=== PATIENT | female | born 1970 | race Caucasian/White ===

== ENCOUNTER 2019-10-15 11:38 | Emergency (ER) | payer OTHER ==
[~2019-10-15] VITALS: Ht 165.1 cm; Wt 78.0 kg
[2019-10-15] MEDS ORDERED: LIDOCAINE VISCOUS 2% UD 15 ML UDC ONE (11:59)
[2019-10-15] MEDS ORDERED: MAG HYDROX/AL HYDROX/SIMETH 30 ML UDC ONE (11:59)
[2019-10-15] MEDS ORDERED: IV NS 0.9% 1,000 ML BAG IV ONE (12:00)
[2019-10-15] MEDS ORDERED: ACETAMINOPHEN ES 500 MG TABLET ONE (12:00)
[2019-10-15] MEDS ORDERED: MAG HYDROX/AL HYDROX/SIMETH 30 ML UDC PO ONE (12:00)
[2019-10-15] MEDS ORDERED: LIDOCAINE VISCOUS 2% UD 15 ML UDC MM ONE (12:00)
[2019-10-15] MEDS ORDERED: ACETAMINOPHEN ES 500 MG TABLET PO ONE (12:00)
[2019-10-15 12:08] LABS: BASOPHILS % (AUTO) 0.5 % (0.0-2.0); HEMATOCRIT 43 % (33-45); HEMOGLOBIN 14.6 g/dL (11.5-14.8); LYMPHOCYTES # (AUTO) 2.8 /CMM (0.8-4.8); LYMPHOCYTES % (AUTO) 39.4 % (20.0-44.0); MEAN CORPUSCULAR HGB CONC 34 g/dl (31.0-36.0); MEAN CORPUSCULAR VOLUME 92 fL (82-100); MONOCYTES # (AUTO) 0.3 /CMM (0.1-1.30); MONOCYTES % (AUTO) 4.8 % (2.0-12.0); NEUTROPHILS # (AUTO) 3.8 /CMM (1.8-8.9); NEUTROPHILS % (AUTO) 53.3 % (43.0-81.0); PLATELET COUNT (AUTO) 278 /CMM (150-450); RED BLOOD CELL COUNT(AUTO) 4.69 MIL/uL (4.0-5.2); WHITE BLOOD COUNT (AUTO) 7.2 K/uL (4.3-11.0)
[2019-10-15 12:16] LABS: ALBUMIN 4.6 g/dL (3.4-5.0); BILIRUBIN,DIRECT 0.1 mg/dL (0.0-0.2); BILIRUBIN,TOTAL 0.6 mg/dL (0.2-1.0); CALCIUM, SERUM 9.4 mg/dL (8.5-10.1); POTASSIUM 3.2 mmol/L (3.5-5.1)
--- NOTE | 2019-10-15 12:58 | NUR ---
Pt states "feeling a bit better" Updated by MD - For discharge. Patient discharged to home in stable condition. Written and verbal after care instructions given. Patient verbalizes understanding of instruction.
[2019-10-15 12:59] VITALS: BP 122/79
== END 2019-10-15 13:00 | disposition home or self-care (01) ==
LOC: PART 11:46 → ER 13:00
DX: R10.13 Epigastric pain (principal); J32.9 Chronic sinusitis, unspecified; Z90.89 Acquired absence of other organs; Z60.2 Problems related to living alone
CPT/HCPCS: 36415; 71045; 80048; 80076; 83690; 85025; 99284; J7030

== ENCOUNTER 2021-09-22 21:40 | Emergency (ER) | payer OTHER ==
[~2021-09-22] VITALS: Ht 165.1 cm; Wt 77.6 kg
--- NOTE | 2021-09-22 21:52 | NUR ---
PT BIBFAMILY C/O LEFT SIDED CHEST PAIN RADIATING TO LEFT SHOULDER X 3 HOURS. PT AAOX4 BREATHING EVENLY AND UNLABORED. PT ATTACHED TO DIRECTOR OF INVESTIGATIONS AND POX. PT CHANGED INTO GOWN AND GIVEN BLANKET AND CALL LIGHT WITHIN REACH. EMT AT BEDSIDE FOR EKG
[2021-09-22] MEDS ORDERED: ASPIRIN 325 MG TABLET ONE (22:16)
--- NOTE | 2021-09-22 22:26 | NUR ---
LEFT AC 20G INITIATED, BLOOD OBTAINED AND SENT TO LAB
[2021-09-22] MEDS ORDERED: ASPIRIN 325 MG TABLET PO ONE (22:30)
[2021-09-22 22:45] LABS: BASOPHILS % (AUTO) 0.6 % (0.0-2.0); EOSINOPHILS % (AUTO) 4.8 % (0.0-6.0); HEMATOCRIT 39 % (33-45); HEMOGLOBIN 12.8 g/dL (11.5-14.8); LYMPHOCYTES % (AUTO) 44.2 % (20.0-44.0); MEAN CORPUSCULAR HGB CONC 33 g/dl (31.0-36.0); MEAN CORPUSCULAR VOLUME 91 fL (82-100); MONOCYTES # (AUTO) 0.4 K/uL (0.1-1.30); MONOCYTES % (AUTO) 6.4 % (2.0-12.0); PLATELET COUNT (AUTO) 251 K/uL (150-450); RED BLOOD CELL COUNT(AUTO) 4.29 MIL/uL (4.0-5.2); WHITE BLOOD COUNT (AUTO) 6.8 K/uL (4.3-11.0)
--- NOTE | 2021-09-22 22:47 | NUR ---
Patient does not wish to proceed with medical care recommended by Dr. Gordon. Patient given information related to possible complications, up to and including , which could occur as a result of leaving the hospital at this time. Patient verbalizes understanding of risks involved due to leaving against medical advice. Patient has signed AMA form. IV removed. Catheter intact and site benign. Pressure and 4x4 applied to site. No bleeding noted. Pt wheeled to family car for pickup
[2021-09-22 22:54] VITALS: BP 131/80
[2021-09-23 00:10] LABS: CALCIUM, SERUM 8.7 mg/dL (8.5-10.1); CARBON DIOXIDE 28 mmol/L (21-32); CHLORIDE 105 mmol/L (98-107); CREATININE 0.7 mg/dL (0.6-1.3); GLUCOSE 115 mg/dL (74-106); POTASSIUM 3.5 mmol/L (3.5-5.1); SODIUM SERUM 140 mmol/L (136-145); UREA NITROGEN, BLOOD 12 mg/dL (7-18)
[2021-09-23 00:20] LABS: ALANINE AMINOTRANSFERASE 27 U/L (12-78); ALBUMIN 3.9 g/dL (3.4-5.0); ALKALINE PHOSPHATASE 114 U/L (46-116); ASPARTATE AMINOTRANSFERASE 18 U/L (15-37); BILIRUBIN,DIRECT 0.1 mg/dL (0.0-0.2); BILIRUBIN,TOTAL 0.3 mg/dL (0.2-1.0)
== END 2021-09-22 22:47 | disposition left against medical advice (07) ==
LOC: ER 21:54
DX: R07.89 Other chest pain (principal); Z90.89 Acquired absence of other organs; Z60.2 Problems related to living alone
CPT/HCPCS: 36415; 80048-TC; 80076-TC; 84484-TC; 85025-TC; 85378-TC; 85730-TC

== ENCOUNTER 2022-03-30 10:20 | Emergency (ER) | payer OTHER ==
[~2022-03-30] VITALS: Ht 165.1 cm; Wt 79.4 kg
--- NOTE | 2022-03-30 10:30 | NUR ---
RECEIVED PT 51YRS female c/o genralized weekness and chest pain after took here routine mediction for 2days no itching no rash
--- NOTE | 2022-03-30 10:55 | NUR ---
SEEN BY DR. AVINA
[2022-03-30] MEDS ORDERED: IV NS 0.9% 1,000 ML BAG IV ONE (11:00)
--- NOTE | 2022-03-30 11:00 | NUR ---
INSERTED ANGO CATHETER G 20 ON LT AC BLOOD DROW AND SENT to lab
--- NOTE | 2022-03-30 11:30 | NUR ---
COVID AND INFZ SWAB SENT TO LAB
--- NOTE | 2022-03-30 11:35 | NUR ---
C XRAY DONE AT BED SIDE
[2022-03-30 11:36] LABS: BASOPHILS % (AUTO) 0.5 % (0.0-2.0); EOSINOPHILS % (AUTO) 1.9 % (0.0-6.0); HEMATOCRIT 42 % (33-45); HEMOGLOBIN 14.1 g/dL (11.5-14.8); LYMPHOCYTES # (AUTO) 1.2 K/uL (0.8-4.8); LYMPHOCYTES % (AUTO) 27.6 % (20.0-44.0); MEAN CORPUSCULAR HGB CONC 34 g/dl (31.0-36.0); MEAN CORPUSCULAR VOLUME 90 fL (82-100); MONOCYTES # (AUTO) 0.4 K/uL (0.1-1.30); MONOCYTES % (AUTO) 9.7 % (2.0-12.0); NEUTROPHILS # (AUTO) 2.5 K/uL (1.8-8.9); NEUTROPHILS % (AUTO) 60.3 % (43.0-81.0); PLATELET COUNT (AUTO) 228 K/uL (150-450); RED BLOOD CELL COUNT(AUTO) 4.67 MIL/uL (4.0-5.2); WHITE BLOOD COUNT (AUTO) 4.2 K/uL (4.3-11.0)
[2022-03-30 11:44] LABS: MAGNESIUM 2.3 mg/dL (1.8-2.4)
[2022-03-30 11:46] LABS: CALCIUM, SERUM 9.2 mg/dL (8.5-10.1); CARBON DIOXIDE 27 mmol/L (21-32); CHLORIDE 104 mmol/L (98-107); CREATININE 0.8 mg/dL (0.6-1.3); GLUCOSE 108 mg/dL (74-106); POTASSIUM 3.5 mmol/L (3.5-5.1); SODIUM SERUM 141 mmol/L (136-145); UREA NITROGEN, BLOOD 8 mg/dL (7-18)
[2022-03-30 11:58] LABS: ALANINE AMINOTRANSFERASE 68 U/L (12-78); ALBUMIN 4.3 g/dL (3.4-5.0); ALKALINE PHOSPHATASE 115 U/L (46-116); ASPARTATE AMINOTRANSFERASE 54 U/L (15-37); BILIRUBIN,DIRECT 0.1 mg/dL (0.0-0.2); BILIRUBIN,TOTAL 0.5 mg/dL (0.2-1.0); TOTAL PROTEIN, SERUM 8.7 g/dL (6.4-8.2)
[2022-03-30 11:59] LABS: THYROID STIMULATING HORMONE 4.57 uIU/mL (0.358-3.74)
--- NOTE | 2022-03-30 13:00 | NUR ---
DR. AVINA AT BED SIDE SPOOK with pt about blan of care will d/c home today
--- NOTE | 2022-03-30 13:10 | NUR ---
d/c iv done completed and presssure apple no bleeding on site
--- NOTE | 2022-03-30 13:14 | NUR ---
Patient discharged to home in stable condition. Written and verbal after care instructions given. Patient verbalizes understanding of instruction.
--- NOTE | 2022-03-30 13:14 | NUR ---
IV removed. Catheter intact and site benign. Pressure and 4x4 applied to site. No bleeding noted.
[2022-03-30 13:15] VITALS: BP 139/84
== END 2022-03-30 13:29 | disposition home or self-care (01) ==
LOC: ER 10:25
DX: R07.89 Other chest pain (principal); T50.915A Adverse effect of multiple unspecified drugs, medicaments and biological substances, initial encounter; Y92.009 Unspecified place in unspecified non-institutional (private) residence as the place of occurrence of the external cause; K22.4 Dyskinesia of esophagus; Z20.822 Contact with and (suspected) exposure to COVID-19
CPT/HCPCS: 99285; 96360; 71045; 87426; 93005; 87804; 85025; 80048; 80076; 83735; 85378; 36415; 84443; 84484; 83880; J7030; C9803